=== PATIENT | male | born 1985 | race Caucasian/White ===

== ENCOUNTER 2020-08-10 16:15 | Inpatient (IN) | payer BC, OTHER ==
[~2020-08-10] VITALS: Ht 152.4 cm; Wt 65.8 kg
[2020-08-10 16:22] VITALS: BP 130/76
[2020-08-10 16:55] LABS: ABSOLUTE NEUTROPHILS 13.8 thou/uL (1.4-8.2); BASOPHILS 0.3 % (0.0-2.0); EOSINOPHILS 0.1 % (0.0-3.0); HEMATOCRIT 44.1 % (42.0-52.0); HEMOGLOBIN 14.8 gm/dL (14.0-18.0); LYMPHOCYTES 9.4 % (24.0-44.0); MCH 29.3 pg (26.0-34.0); MCHC 33.7 g/dL (28.0-37.0); MCV 86.9 fL (80.0-100.0); MONOCYTES 3.8 % (1.0-8.0); PLATELET COUNT 272 thou/uL (150-400); POLYS 86.4 % (36.0-66.0); RBC 5.07 mil/uL (4.50-6.00); RDW 13.1 % (10.5-14.5); WBC 15.9 thou/uL (4.0-11.0)
[2020-08-10 17:03] LABS: CALCIUM 10.1 mg/dL (8.5-10.1); CREATININE 1.4 mg/dL (0.7-1.3); POTASSIUM 3.6 mmol/L (3.5-5.1)
[2020-08-10 17:10] LABS: ALBUMIN 4.8 g/dL (3.4-5.0); TOTAL BILIRUBIN 0.4 mg/dL (0.2-1.0); TOTAL PROTEIN 8.3 g/dL (6.4-8.2)
[2020-08-10 17:42] LABS: URINE BILIRUBIN NEGATIVE (Negative); URINE BLOOD 3+ (Negative); URINE CLARITY CLEAR; URINE COLOR YELLOW; URINE GLUCOSE-RANDOM* 2+ (Negative); URINE KETONES 1+ (Negative); URINE LEUKOCYTES-REFLEX NEGATIVE (Negative); URINE NITRITE-REFLEX NEGATIVE (Negative); URINE PROTEIN (DIPSTICK) NEGATIVE (Negative); URINE SPECIFIC GRAVITY >= 1.030 (1.005-1.035); URINE UROBILINOGEN 0.2 E.U./dl (0.2-1.0)
[2020-08-10 18:06] LABS: CASTS None Seen /LPF (None Seen); MUCUS >6 Heavy strn/LPF (None Seen); SQUAMOUS None Seen /LPF (0-3); URINE RBC >20 Many /HPF (NONE SEEN); URINE WBC-REFLEX 0-5 Rare /HPF (0-5)
[2020-08-10 18:07] LABS: CALCIUM OXALATE 0-3 Few /LPF (None Seen)
[2020-08-10] MEDS ORDERED: LISINOPRIL10 MG PO (19:08)
[2020-08-10 19:42] VITALS: BP 123/71
[2020-08-10 19:53] VITALS: BP 113/68
[2020-08-10 20:08] VITALS: BP 147/9
[2020-08-11 03:42] VITALS: BP 105/65
[2020-08-11 05:32] LABS: HEMATOCRIT 35.8 % (42.0-52.0); MCH 29.6 pg (26.0-34.0); MCHC 33.9 g/dL (28.0-37.0); MCV 87.4 fL (80.0-100.0); RBC 4.09 mil/uL (4.50-6.00); WBC 9.7 thou/uL (4.0-11.0)
[2020-08-11 05:37] LABS: HEMOGLOBIN 12.1 gm/dL (14.0-18.0)
[2020-08-11 05:50] LABS: CALCIUM 8.4 mg/dL (8.5-10.1); POTASSIUM 4.1 mmol/L (3.5-5.1)
--- NOTE | 2020-08-11 06:32 | NUR ---
ADMIT PT ADMITTED TO ROOM 358 FROM ED WITH UTI, SEVERE SEPSIS, AND URETERAL STONE. A/O X4, LUNGS CLEAR, ABDOMEN SOFT WITH GOOD BS REPORTS BM THIS AFTERNOON. DENIES NAUSEA RATING PAIN O LEFT FLANK A 2. ORIENTED TO ROOM CALL LIGHT AND PLAN OF CARE, DISCUSSED PAIN MANAGEMENT AND STRAINING URINE. VOIDED X 2 THIS SHIFT URINE STRAINED NO STONE NOTED. PT SLEPT MOST OF NIGHT DENIED NEED FOR PAIN MEDICATION. IVF'S INFUSING 126ML'S/HR. ADMISSION QUESTIONNAIRE COMPLETED.
[2020-08-11 07:30] VITALS: BP 108/67
[2020-08-11] MEDS ORDERED: NORCO5 PO (09:02)
[2020-08-11 09:42] VITALS: BP 108/67
--- NOTE | 2020-08-11 11:45 | NUR ---
INITIAL ASSESSMENT/DISCHARGE NOTE: SW reviewed chart and spoke with nursing and attending physician. Pt was admitted from home due to UTI/spesis/ureteral stone. Pt will discharge home later today. SW met with pt at bedside. Introduced role of SW. Pt is alert/orientated x 4. Pt reports he lives at home. Prior to admission, pt was independent with ADLs. No use of DME. Pt's PCP is Dr. Makayla Gleason. Pt reports he will have transportation home when discharge. No SW needs identified at this time, but is available to assist should needs arise.
[2020-08-12] MEDS ORDERED: vit d PO (15:17)
[2020-08-12] MEDS ORDERED: VIT B12 PO (15:18)
[2020-08-12] MEDS ORDERED: TUMERIC PO (15:18)
[2020-08-12] MEDS ORDERED: NORCO PO (15:19)
[2020-08-12] MEDS ORDERED: TORADOL 10 MG T10 MG PO (18:45)
[2020-08-12] MEDS ORDERED: OXAYDO7.5 MG PO (18:45)
[2020-08-12] MEDS ORDERED: ZOFRAN ODT4 MG PO (18:46)
== END 2020-08-11 13:35 | disposition home or self-care (01) | DRG 872 ==
LOC: ER 16:15 → EROBS 19:16 → 3W 19:16
PROVIDERS: Nurse Practitioner Family; Physician Assistant; ADMIT Hospitalist; ATTEND Hospitalist
DX: A41.9 Sepsis, unspecified organism (principal); N17.9 Acute kidney failure, unspecified; N13.6 Pyonephrosis; Z20.822 Contact with and (suspected) exposure to COVID-19; I10 Essential (primary) hypertension; R65.20 Severe sepsis without septic shock; Z88.0 Allergy status to penicillin
CPT/HCPCS: 10879

== ENCOUNTER 2020-08-12 14:57 | Emergency (ER) | payer BC, OTHER ==
[~2020-08-12] VITALS: Ht 172.7 cm; Wt 67.1 kg
[~2020-08-12 14:57] MED LIST: LISINOPRIL10 MG PO; NORCO5 PO
[2020-08-12] MEDS ORDERED: vit d PO (15:17)
[2020-08-12] MEDS ORDERED: TUMERIC PO (15:18)
[2020-08-12] MEDS ORDERED: VIT B12 PO (15:18)
[2020-08-12] MEDS ORDERED: NORCO PO (15:19)
[2020-08-12 16:20] LABS: ABSOLUTE NEUTROPHILS 12.5 thou/uL (1.4-8.2); BASOPHILS 0.4 % (0.0-2.0); HEMATOCRIT 39.1 % (42.0-52.0); HEMOGLOBIN 13.4 gm/dL (14.0-18.0); MCH 29.2 pg (26.0-34.0); MCHC 34.1 g/dL (28.0-37.0); MCV 85.4 fL (80.0-100.0); PLATELET COUNT 220 thou/uL (150-400); POLYS 88.6 % (36.0-66.0); RBC 4.58 mil/uL (4.50-6.00); RDW 13.1 % (10.5-14.5); WBC 14.1 thou/uL (4.0-11.0)
[2020-08-12 16:26] LABS: CALCIUM 9.7 mg/dL (8.5-10.1); CREATININE 1.4 mg/dL (0.7-1.3); POTASSIUM 4.1 mmol/L (3.5-5.1)
[2020-08-12 16:54] LABS: URINE BILIRUBIN NEGATIVE (Negative); URINE BLOOD NEGATIVE (Negative); URINE CLARITY CLEAR; URINE COLOR YELLOW; URINE GLUCOSE-RANDOM* NEGATIVE (Negative); URINE KETONES 2+ (Negative); URINE LEUKOCYTES-REFLEX NEGATIVE (Negative); URINE NITRITE-REFLEX NEGATIVE (Negative); URINE PROTEIN (DIPSTICK) NEGATIVE (Negative); URINE SPECIFIC GRAVITY 1.015 (1.005-1.035); URINE UROBILINOGEN 0.2 E.U./dl (0.2-1.0)
[2020-08-12] MEDS ORDERED: TORADOL 10 MG T10 MG PO (18:45)
[2020-08-12] MEDS ORDERED: OXAYDO7.5 MG PO (18:45)
[2020-08-12] MEDS ORDERED: ZOFRAN ODT4 MG PO (18:46)
[2020-08-12 18:57] VITALS: BP 115/71
== END 2020-08-12 18:57 | disposition home or self-care (01) ==
LOC: ER 14:57
PROVIDERS: Emergency Medicine
DX: N20.1 Calculus of ureter (principal); N17.9 Acute kidney failure, unspecified; E86.0 Dehydration; I10 Essential (primary) hypertension; F41.9 Anxiety disorder, unspecified; Z96.22 Myringotomy tube(s) status; Z79.899 Other long term (current) drug therapy; Z88.0 Allergy status to penicillin